=== PATIENT | male | born 1985 | race Caucasian/White ===

== ENCOUNTER 2020-09-19 20:26 | Emergency (ER) | payer OTHER ==
[~2020-09-19] VITALS: Ht 175.3 cm; Wt 68.0 kg
--- NOTE | 2020-09-19 20:55 | NUR ---
Patient walked into ER with c/o jacobo pain, stated that he has been drinking alcholo and doing drugs for the past few days and feels his chest is hurting. EKG done, placed patient on monitor and pulse ox.
[2020-09-19] MEDS ORDERED: LORAZEPAM 2 MG/1 ML VIAL IV ONE (21:00)
--- NOTE | 2020-09-19 21:00 | NUR ---
at bedside for MSE.
[2020-09-19 21:08] LABS: HEMATOCRIT 45.9 % (36.7-47.1); MEAN CORPUSCULAR HEMOGLOBIN 31.3 uug (23.8-33.4); MEAN CORPUSCULAR VOLUME 90.2 fL (73.0-96.2); PLATELET COUNT (AUTO) 245 K/uL (152-348)
[2020-09-19] MEDS ORDERED: LORAZEPAM 2 MG/1 ML VIAL ONE (21:10)
[2020-09-19 21:12] LABS: POTASSIUM 3.5 mmol/L (3.5-5.1)
[2020-09-19 22:02] VITALS: BP 154/89
--- NOTE | 2020-09-19 22:02 | NUR ---
Patient discharged to home in stable condition. Written and verbal after care instructions given. Patient verbalizes understanding of instructions. Stressed follow up or return to ER for worsening s/s.
== END 2020-09-19 22:03 | disposition home or self-care (01) ==
LOC: ER 20:31
DX: R07.9 Chest pain, unspecified (principal); R00.0 Tachycardia, unspecified; K21.9 Gastro-esophageal reflux disease without esophagitis; F19.10 Other psychoactive substance abuse, uncomplicated; F10.10 Alcohol abuse, uncomplicated; Z90.49 Acquired absence of other specified parts of digestive tract; F14.10 Cocaine abuse, uncomplicated
CPT/HCPCS: 36415; 71045; 80048; 84484; 85025; 93005; 96374; 99285; J2060; 70030-TC; A4663